=== PATIENT | male | born 1960 | race Caucasian/White ===

== ENCOUNTER 2022-10-18 09:10 | Day surgery (SDC) | payer OTHER ==
[~2022-10-18] VITALS: Ht 172.7 cm; Wt 102.1 kg
[2022-10-18] MEDS ORDERED: DEXAMETHASONE SOD PHOSPHATE 4 MG/ML VIAL ONE (13:55)
[2022-10-18] MEDS ORDERED: SUGAMMADEX SODIUM 200 MG/2 ML VIAL IV ONE (13:55)
[2022-10-18] MEDS ORDERED: MIDAZOLAM HCL 2 MG/2 ML VIAL (VERSED) ONE (13:55)
[2022-10-18] MEDS ORDERED: PROPOFOL 200MG/ 20ML VIAL (DIPRIVAN) IV ONE (13:55)
[2022-10-18] MEDS ORDERED: DESFLURANE 15 MIN GAS INH ONE (13:55)
[2022-10-18] MEDS ORDERED: ROCURONIUM BROMIDE 10 MG/ML (ZEMURON) ONE (13:55)
[2022-10-18] MEDS ORDERED: LR 1,000 ML IV.SOLN IV ONE (13:55)
[2022-10-18] MEDS ORDERED: ONDANSETRON HCL 4 MG/2 ML VIAL ONE (13:55)
[2022-10-18] MEDS ORDERED: LIDOCAINE 2%, 20 ML MDV ONE (13:55)
[2022-10-18] MEDS ORDERED: fentaNYL CITRATE/PF 100 MCG/2 ML AMP ONE (13:55)
[2022-10-18] MEDS ORDERED: ACETAMINOPHEN I.V. 1000 MG 100 ML IV ONE (14:17)
[2022-10-18] MEDS ORDERED: HYDROmorphone 1 MG/ML INJ. CARTRIDGE IVP PRN ×2 (15:00)
[2022-10-18] MEDS ORDERED: METOCLOPRAMIDE HCL 10 MG/2 ML VIAL IVP PRN (15:00)
[2022-10-18] MEDS ORDERED: LR 1,000 ML IV SCH (15:00)
[2022-10-18] MEDS ORDERED: LABETALOL 100 MG/ 20ML VIAL IVP PRN (15:00)
[2022-10-18] MEDS ORDERED: MEPERIDINE HCL/PF 25 MG/ML DISP.SYRIN IVP PRN (15:00)
[2022-10-18] MEDS ORDERED: hydrALAZINE HCL 20 MG/ML VIAL IVP PRN (15:00)
[2022-10-18] MEDS ORDERED: HYDROmorphone 1 MG/ML INJ. CARTRIDGE ONE (17:29)
[2022-10-18] MEDS ORDERED: hydrALAZINE HCL 20 MG/ML VIAL ONE (17:45)
[2022-10-18 18:45] VITALS: BP_SYST 145
== END 2022-10-18 19:00 | disposition home or self-care (01) ==
LOC: SDS 09:10 → SMU 09:18 → SDS 19:00
PROVIDERS: ATTEND Otolaryngology
DX: J34.2 Deviated nasal septum (principal); J32.9 Chronic sinusitis, unspecified; D38.5 Neoplasm of uncertain behavior of other respiratory organs
CPT/HCPCS: 31298; 31255; 30140; 30520; 31256; 82962; 87070; 87075; 87116; 87101; J3490; J1100; J0360; J2001; J3465; J2405; J2704; J3010; J1170; J7120; J0131